=== PATIENT | male | born 1945 | race Caucasian/White ===

== ENCOUNTER → 2016-11-22 | Day surgery (SDC) | payer MEDICARE ==
[~2016-11-22] MED LIST: ACTOS PO; AMIODARONE PO; APIDRA SOL100 UNIT/1 SUBQ; AVAPRO PO; CINNAMON; COUMADIN; COUMADIN PO; DIOVAN PO; FISH OIL; FLOMAX0.4 M1 PO; GLUCOPHAGE XR500 MG PO; GLUCOTROL PO; GLUCOTROL10 MG PO; JANTOVEN; JANTOVEN PO; JANUMET 50-501 UDTAB; LANOXIN PO; LANTUS100 U/ML SUBQ; LIPITOR PO; LISINOPRIL1 GM; LO-DOSE ASPIRIN81 M1 PO; LORTAB 5/500 TA1 TA1 PO; LOSARTAN POTASS50 MG PO; METOPROLOL ER PO; MULTI-VITAMIN; NEXIUM PO; NORVASC; NORVASC10 MG PO; PACERONE PO; PRAVASTATIN SOD40 MG PO; SYNTHROID PO; SYNTHROID0.1 MG; SYNTHROID0.1 MG PO; TIROSINT88 MCG PO; VIT E PO; ZANAFLEX4 M1 PO; ZANTAC PO
--- NOTE | ~2016-11-22 | OR ---
Unit #: [id number] #: [id number] Patient: RACHEL DUNLAP [id number] [place] [id number] MR#: [id number] NAME: RACHEL DUNLAP ROOM: Date of Procedure: 11/22/2016 Admission Date: 11/22/2016 Surgeon: Shahzad Vásquez Jr., M.D. : 1945 Attending Physician: Shahzad Vásquez Jr., M.D. Primary Care Physician: Aman Camarillo M.D. OPERATIVE REPORT INDICATIONS FOR PROCEDURE The patient is a 71-year-old white male with a known past history for esophageal stenosis and dysphagia. He has recently been having more and more dysphagia that started about a year ago. It is felt he has recurrent esophageal stenosis. He is brought in this time at his request for upper endoscopy with dilatation. He understands the procedure including the risks, including that of bleeding and perforation, and consents. PREOPERATIVE DIAGNOSIS Recurrent esophageal stenosis. POSTOPERATIVE DIAGNOSES Recurrent esophageal stenosis, noting mild to moderate stenosis with small hiatal hernia. ANESTHESIA MAC anesthesia. PROCEDURE PERFORMED Flexible fiberoptic esophagogastroduodenoscopy with esophageal dilatation from 18 to 20 mm. DESCRIPTION OF PROCEDURE The patient was positioned in [place] position with left side down. After being given MAC anesthesia, the Olympus XQ scope was passed through the proximal esophagus. Entire esophagus was examined. Proximal two-thirds appeared normal. In the area of the distal esophagus, there was a ring of scar tissue with [id number] stenosis. The scope was advanced through this area with minimal resistance into the cardia, fundic, and antral region of the stomach and retroflexed back up to the area of the cardia where there was a small hiatal hernia present. The stomach distended well without evidence of any rigidity. No evidence of any gastric ulcer disease. The scope was advanced down to the prepyloric region through the pylorus and the duodenal bulb and down to the second portion of the duodenum. The entire duodenal portion examination was within normal limits. The scope was brought back up to the area of the antrum. An 18 to 20 mm balloon dilator was placed in the distal esophagus and starting with 18 mm, slowly advanced to 19, then 20 with good dilatation of the distal esophagus with no evidence of any perforation or significant bleeding. The scope was then slowly removed. The patient tolerated the procedure well and was discharged in satisfactory condition. Unit #: [id number] #: [id number] Patient: RACHEL DUNLAP Dictated by... Shahzad Vásquez Jr., M.Logan WALTERS/jorge l TD: 11/22/2016 08:42 JOB #: [id number] OPERATIVE REPORT Page 1 of 1 X Shahzad Vásquez MD X PROCEDURE OPERATIVE NOTE
== END | disposition home or self-care (01) ==
LOC: COPS 06:29
DX: K22.2 Esophageal obstruction (principal); K44.9 Diaphragmatic hernia without obstruction or gangrene; E11.9 Type 2 diabetes mellitus without complications; I10 Essential (primary) hypertension; E66.01 Morbid (severe) obesity due to excess calories; M15.9 Polyosteoarthritis, unspecified; K21.9 Gastro-esophageal reflux disease without esophagitis; F41.9 Anxiety disorder, unspecified; F32.9 Major depressive disorder, single episode, unspecified; Z68.41 Body mass index [BMI] 40.0-44.9, adult; Z85.828 Personal history of other malignant neoplasm of skin; Z87.442 Personal history of urinary calculi; Z79.4 Long term (current) use of insulin; Z79.82 Long term (current) use of aspirin; Z95.0 Presence of cardiac pacemaker
CPT/HCPCS: 82947; J2250